=== PATIENT | male | born 1975 | race Caucasian/White ===

== ENCOUNTER 2020-10-16 13:05 | Emergency (ER) | payer OTHER, SELFPAY ==
--- NOTE | ~2020-10-16 | CT_ITS ---
EXAMINATION: CT ABDOMEN AND PELVIS WITHOUT CONTRAST CLINICAL INFORMATION: Flank pain COMPARISON: Renal ultrasound 09/15/2019, CT abdomen and pelvis noncontrast 09/27/2017. TECHNIQUE: Multidetector volumetric imaging was performed from the superior aspect of the liver through the pubic symphysis. No oral or intravenous contrast. Sagittal and coronal reformatted images were obtained on the technologist's workstation. This CT examination was performed using dose optimization techniques as appropriate, variously including the following: *Automated exposure control *Adjustment of mA and/or kV according to patient size (this includes techniques or standardized protocols for targeted exams where dose is matched to indication/reason for exam; i.e. extremities or head) *Use of iterative reconstruction technique DLP: 469 mGy-cm FINDINGS: LUNG BASES: The visualized lung bases are unremarkable. LIVER, GALLBLADDER, AND BILIARY TREE: The liver is normal in size, shape, and attenuation. No focal hepatic lesion or biliary ductal dilatation is present. The gallbladder is unremarkable with no evidence of radiopaque gallstones, gallbladder wall thickening, or obvious pericholecystic inflammatory changes. PANCREAS: Unremarkable. SPLEEN: Unremarkable. ADRENAL GLANDS: Unremarkable. KIDNEYS AND URETERS: The kidneys are normal in size and attenuation and smooth in contour. The left kidney has a punctate nonobstructing interpolar calculus under 3 mm. There are no left ureteral calculus or perinephric stranding. There is mild to moderate right hydronephrosis with mild right hydroureter. A 3 mm calculus is present at the bladder side right ureterovesical junction. There is trace perinephric stranding. Similar findings were present on CT 2018. Fine benign linear calcification is present right renal lower pole parenchyma without visible mass. BLADDER: 3 mm calculus at bladder side right UVJ. GASTROINTESTINAL TRACT: There are no acute inflammatory changes in the bowel or mesentery. No obstruction. The appendix is normal. There is accentuated circumferential submucosal fat throughout the colon. This is nonspecific finding and could be associated with chronic inflammatory bowel disease. Clinically correlate. There is no pneumatosis or free air. There is no ascites or fluid collection. ABDOMINAL WALL: No significant hernia is appreciated. LYMPH NODES: No lymphadenopathy. VASCULAR: Unremarkable. PELVIC VISCERA: Unremarkable. OSSEOUS STRUCTURES: Unremarkable. No sacroiliitis. CT/CT abdomen pelvis wo con IMPRESSION: 1. Mild to moderate right hydronephrosis and mild right hydroureter. 3 mm calculus present lateral side right UVJ. Punctate nonobstructing calculus mid pole left kidney. Similar findings were noted in 2018. 2. No bowel obstruction or acute inflammatory changes in bowel or mesentery. Nonspecific accentuated circumferential submucosal fat throughout colon. Finding may be seen in patients with chronic history inflammatory bowel disease. Clinically correlate.
[2020-10-16 13:09] VITALS: BP 143/117; PULSE 79; RESP 18; TEMP 36.9; O2SAT 96; BMI 27.3
[2020-10-16 14:43] LABS: MANUAL DIFF FLAG NO
[2020-10-16 14:51] LABS: Glucose Urine UA NEG (NEG); Leukocyte Esterase Urine NEG (NEG); Nitrite Urine NEG (NEG); Specific Gravity - Urine >= 1.030 (1.005-1.025); UACC Culture Trigger NO; Urine Blood 2+ (NEG); Urine Ketones NEG (NEG); Urine Protein 1+ MG/DL (NEG-TRACE)
[2020-10-16 14:55] LABS: Basophils Percent Auto 0.4 % (0-2); Eosinophils Percent Auto 0.2 % (0-4); Hemoglobin 13.1 g/dl (14.0-18.0); Imm Gran Abs Auto 0.01 X10*3/uL (0.00-0.03); Imm Gran Pct Auto 0.1 % (0.0-0.4); Mean Corpuscular HGB Conc 33.6 g/dl (31.0-36.0); Mean Corpuscular Hemoglobin 29.6 pg (27.0-33.0); Mean Platelet Volume 10.8 fL (9.4-12.4); Monocytes Absolute Auto 0.5 X10*3/uL (0.1-1.2); Monocytes Percent Auto 5.8 % (2-11); Neutrophils Absolute Auto 6.7 X10*3/uL (2.0-8.3); Neutrophils Percent Auto 81.5 % (45-73); Platelet Count 227 X10*3/uL (160-400); Red Blood Count 4.43 X10*6/uL (4.60-5.80); Red Cell Distribution Width 12.5 % (11.0-16.0); White Blood Count 8.3 X10*3/uL (4.8-10.8)
[2020-10-16 14:56] LABS: Appearance Urine CLEAR; Color Urine YELLOW
[2020-10-16 15:08] LABS: Anion Gap 14 (12-20); Blood Urea Nitrogen 17 mg/dL (9-16); Carbon Dioxide 22 mmol/L (22-29); Chloride 109 mmol/L (96-108); Creatinine Clr Calc Pharmacy 71.4; Estimated Glomerular Filt Rate > 60; Glucose Random 131 mg/dL (60-115); Potassium 4.4 mmol/L (3.3-5.1); Sodium 141 mmol/L (135-145)
[2020-10-16 15:16] LABS: Bacteria Urine TRACE /LPF; Calcium Oxalate Crystals Urine TRACE /LPF; Calcium Phosphate Crystals Ur TRACE /LPF; Hyaline Casts Urine 0-2 /LPF; Mucus Urine 2+ /LPF; WBC Urine 0-2 /HPF (0-4)
--- NOTE | 2020-10-16 16:58 | ED.MALEGU ---
HPI - Male Genitourinary General Chief complaint: Urogenital-Male Stated complaint: ABD PAIN Time Seen by Provider: 10/16/20 16:58 Source: patient Mode of arrival: ambulatory Limitations: no limitations History of Present Illness HPI Narrative: [age] old male with left-sided flank pain left lower abdominal pain. Patient states this pain has since resolved had it for about an hour this morning patient has a history of kidney stones patient denies fevers chills or blood in his urine. Patient denies any falls or other injuries. Patient states he has had kidney stones in the past. Related Data Previous Rx's Medication Instructions Recorded indomethacin 50 mg capsule 50 mg PO BID #60 cap 10/16/20 Allergies Allergy/AdvReac Type Severity Reaction Status Date / Time No Known Allergies Allergy Unverified 11/04/19 16:31 [No Known Allergies*] dairy Allergy Unknown rash Uncoded 10/12/19 00:00 Review of Systems Review of Systems: Review of systems: General: Patient denies any fever chills recent illness or falls Musculoskeletal: Denies back pain or body aches or other injuries HEENT: denies headache, runny nose, ear pain Respiratory: denies shortness of breath, cough Cardiovascular: no chest pain or palpitations : denies dysuria, frequency Abdomen: Left flank pain no nausea vomiting denies abdominal pain Extremities: no swelling, no pain Skin: no diaphoresis Yes all other systems are reviewed and are negative PMFSH Social History Social History Advance Directives: No Advance Directives Information Provided: No Physical Exam Vital Signs: Vital Signs: Last Vital Signs Temp 98.4 F 10/16/20 13:09 Pulse 79 10/16/20 13:09 Resp 18 10/16/20 13:09 BP 143/117 H 10/16/20 13:09 Pulse Ox 96 10/16/20 13:09 Body Mass Index 27.3 General: Well-appearing well-nourished in no signs of distress HEENT: Normocephalic atraumatic Neck: No signs of JVD, no masses no tenderness or lymphadenopathy Cardiovascular: Regular rate and rhythm Respiratory: Clear to auscultation bilaterally Abdomen: Soft nontender no masses no CVA tenderness Extremities: Normal pedal pulses no signs of edema Skin: Dry warm no rashes Back: No tenderness full ROM MDM - Male Genitourinary MDM Narrative Medical decision making narrative: Patient with left flank pain concern for kidney stone patient was sent for CT scan and labs. Pain is well controlled Pain continues to have will control pain CT scan shows a 3 mm kidney stone urine shows red blood cells with no signs of infection his labs otherwise normal send patient home with Urology follow-up. Differential Diagnosis Differential diagnosis: Likely urinary tract infection Lab Data Result diagrams: 10/16/20 14:35 10/16/20 14:35 Labs: Lab Results 10/16/20 10/16/20 10/16/20 Range/Units 14:35 14:35 14:38 WBC 8.3 (4.8-10.8) X10*3/uL RBC 4.43 L (4.60-5.80) X10*6/uL Hgb 13.1 L (14.0-18.0) g/dl Hct 39.0 L (42-52) % MCV 88.0 (80-98) fL MCH 29.6 (27.0-33.0) pg MCHC 33.6 (31.0-36.0) g/dl RDW 12.5 (11.0-16.0) % Plt Count 227 (160-400) X10*3/uL MPV 10.8 (9.4-12.4) fL Immature Gran % (Auto) 0.1 (0.0-0.4) % Neut % (Auto) 81.5 H (45-73) % Lymph % (Auto) 12.0 L (20-40) % [place] % (Auto) 5.8 (2-11) % Eos % (Auto) 0.2 (0-4) % Baso % (Auto) 0.4 (0-2) % Lymph # (Auto) 1.0 L (1.2-4.9) X10*3/uL [place] # (Auto) 0.5 (0.1-1.2) X10*3/uL Eos # (Auto) 0.0 (0.0-0.4) X10*3/uL Baso # (Auto) 0.0 (0.0-0.2) X10*3/uL Abs Immat Gran (auto) 0.01 (0.00-0.03) X10*3/uL Absolute Neuts (auto) 6.7 (2.0-8.3) X10*3/uL Absolute Nucleated RBC 0.000 (0.0-0.012) X10*3/uL Nucleated RBC % (auto) 0.0 (0.0-0.2) /100WBC Sodium 141 (135-145) mmol/L Potassium 4.4 (3.3-5.1) mmol/L Chloride 109 H (96-108) mmol/L Carbon Dioxide 22 (22-29) mmol/L Anion Gap 14 (12-20) BUN 17 H (9-16) mg/dL Creatinine 1.29 (0.5-1.4) mg/dL Estim Creat Clear Calc 71.4 Estimated GFR > 60 Random Glucose 131 H (60-115) mg/dL Calcium 10.0 (8.4-10.2) mg/dL Urine Color YELLOW Urine Appearance CLEAR Urine pH 6.0 (5.0-8.0) Ur Specific [place] >= 1.030 H (1.005-1.025) Urine Protein 1+ H (NEG-TRACE) MG/DL Urine Glucose (UA) NEG (NEG) MG/DL Urine Ketones NEG (NEG) MG/DL Urine Blood 2+ H (NEG) Urine Nitrite NEG (NEG) Ur Leukocyte Esterase NEG (NEG) Urine RBC 15-29 H (0) /HPF Urine WBC 0-2 (0-4) /HPF Ur Squamous Epith Cells NONE /LPF Calcium Phosphate Cryst TRACE /LPF Calcium Oxalate Crystal TRACE /LPF Urine Bacteria TRACE /LPF Hyaline Casts 0-2 /LPF Urine Mucus 2+ /LPF Discharge Plan Discharge Clinical Impression: Calculus of kidney Patient Disposition: Home, Self-Care Instructions: Kidney Stones (ED) Additional Instructions: Please call follow through please take the indomethacin as needed for pain and follow-up with urology. Prescriptions: New indomethacin 50 mg capsule 50 mg PO BID Qty: 60 RF: 0 Referrals: Tk Knight MD [Physician] - 2 days (Please call follow-up for kidney stones if you have any other concerns please do not hesitate to come back to emergency department.) Stand Alone Forms: Work/School Release
== END 2020-10-16 17:09 | disposition home or self-care (01) ==
LOC: HO.ED 17:03
PROVIDERS: Emergency Provider Student in an Organized Health Care Education/Training Program; PCP Internal Medicine
DX: N20.0 Calculus of kidney (principal); R10.32 Left lower quadrant pain; Z79.899 Other long term (current) drug therapy
CPT/HCPCS: 36415; 74176; 80048; 81001; 85025; 99283; 99284

== ENCOUNTER 2020-10-18 15:55 | Outpatient (REF) | payer OTHER, SELFPAY ==
--- NOTE | ~2020-10-18 | XR_ITS ---
EXAMINATION: XR ABDOMEN KUB CLINICAL INDICATION: Renal calculus. COMPARISON: CT of 10/16/2020 and 09/27/2017 TECHNIQUE: AP view of the abdomen. FINDINGS: No definite calculi seen overlying the contours of the right or left kidneys. There are a few phleboliths seen about the pelvis with one calcific density measuring 3 mm in diameter overlying the expected location of the ureterovesical junction. It is difficult to tell on prior CT scans how many phleboliths there are to compare to plain film study. There is a normal bowel gas pattern present with stool and gas seen throughout nondilated colon. Psoas margins are intact bilaterally. No bony abnormalities are appreciated. XR/XR KUB IMPRESSION: Known renal calculi overlying the kidneys are not identified on this plain film study. Phleboliths present about the pelvis with one 3 mm density which may correspond to the CT finding of the ureterovesical junction calculus.
== END 2020-10-18 15:56 | disposition home or self-care (01) ==
LOC: HO.XRAY 15:55
PROVIDERS: Visit Provider Urology
DX: N20.0 Calculus of kidney (principal)
CPT/HCPCS: 74018

== ENCOUNTER → 2020-10-26 15:32 | Outpatient (BNVA) | payer OTHER, SELFPAY | PROVIDERS: PCP Internal Medicine; Visit Provider Urology | DX: N20.0 Calculus of kidney (principal) | CPT/HCPCS: 99212 ==

== ENCOUNTER 2020-11-23 12:39 | Outpatient (REF) | payer OTHER, SELFPAY ==
--- NOTE | ~2020-11-23 | US_ITS ---
EXAMINATION: US RETROPERITONEAL LIMITED (RENAL ONLY) CLINICAL INFORMATION: Kidney stone. COMPARISON: Previous renal ultrasound July 2019, CT September 2020 and KUB October 2020 TECHNIQUE: Grayscale and color imaging of the kidneys FINDINGS: RIGHT KIDNEY: 11.2 x 5 x 5.1 cm (SAG x AP x TRV). The kidney is normal in size, contour, and echogenicity. Renal cortical thickness is normal. There is a a stone or cluster of stones in the lower pole measuring 6 x 5 x 5 mm. There is a 9 x 4 x 7 mm cyst in the lower pole. No hydronephrosis. LEFT KIDNEY: 11.3 x 5.2 x 4.4 cm (SAG x AP x TRV). The kidney is normal in size, contour, and echogenicity. Renal cortical thickness is normal. There is a 3 mm echogenic density with twinkle artifact in the midpole questionable suggestive of a stone. No hydronephrosis. US/US renal BI IMPRESSION: Stone or cluster of stones in the lower pole of the right kidney. Small left renal stone. Small right renal cyst.
== END 2020-11-23 12:40 | disposition home or self-care (01) ==
LOC: HO.US 12:39
PROVIDERS: PCP Internal Medicine; Visit Provider Urology
DX: N20.0 Calculus of kidney (principal)
CPT/HCPCS: 76775

== ENCOUNTER → 2020-12-08 11:19 | Outpatient (BNVA) | payer OTHER, SELFPAY | PROVIDERS: Visit Provider Urology | DX: N20.0 Calculus of kidney (principal) | CPT/HCPCS: 99212 ==

== ENCOUNTER 2021-01-03 06:49 | Day surgery (SDC) | payer OTHER, SELFPAY ==
--- NOTE | 2021-01-02 12:08 | HO.ANESPROP2 ---
Documented by User: Colleen Doan NP 01/02/21 12:09 HPI - Anesthesia Eval Consult details Narrative: 45yo M for Right Lithotripsy ESW No previous ESWL on record PMFSH Active Problems Active Problems: All Active Problems (Updated 12/27/20 @ 15:01 by Kyra Santos, ANMOL) Nephrolithiasis (Acute) Past Medical History Medical History (Updated 12/27/20 @ 15:01 by Kyra Santos RN) HTN (hypertension) Surgical History Surgical History (Updated 01/03/21 @ 08:22 by Sandy Yang RN) Hx of cystoscopy Hx of lithotripsy Social History Social History Patient Tobacco Use Status: Never used Tobacco Use of substances other than those prescribed or required for medical reasons: No Have you been hit, kicked, punched, or otherwise hurt by someone within the past year? If so, by whom?: No Are you DNR?: No Advance Directives: No Advance Directives Information Provided: Yes Recently lost weight without trying: No Nutrition Risks: No Nutritional Risk Poor oral hygiene: No Meds Allergies Allergy/AdvReac Type Severity Reaction Status Date / Time No Known Allergies Allergy Verified 12/27/20 15:00 [No Known Allergies*] dairy Allergy Unknown rash Uncoded 12/27/20 15:00 Home Medications Medication Instructions Recorded Confirmed Last Taken Type lisinopril 10 mg tablet 10 mg PO QAM 10/26/20 12/27/20 Unknown History Exam Exam Date and Time: January 02, 2021 1208 Pertinent Lab Results Pertinent Lab Results: Laboratory Tests 10/16/20 10/16/20 14:35 14:35 WBC 8.3 Hgb 13.1 L Hct 39.0 L Plt Count 227 Sodium 141 Potassium 4.4 Chloride 109 H Carbon Dioxide 22 BUN 17 H Creatinine 1.29 Assessment and Plan Assessment Anesthesia Assessment: Chart Reviewed Documented by User: Martita Agosto MD 01/03/21 09:04 HPI - Anesthesia Eval Consult details Narrative: 45yo M for Right Lithotripsy ESW No previous ESWL on record PMFSH Past Medical History Medical History (Updated 12/27/20 @ 15:01 by Kyra Santos, RN) HTN (hypertension) Surgical History Surgical History (Updated 01/03/21 @ 08:22 by Sandy Yang, RN) Hx of cystoscopy Hx of lithotripsy Social History Social History Patient Tobacco Use Status: Never used Tobacco Use of substances other than those prescribed or required for medical reasons: No Have you been hit, kicked, punched, or otherwise hurt by someone within the past year? If so, by whom?: No Are you DNR?: No Advance Directives: No Advance Directives Information Provided: Yes Recently lost weight without trying: No Nutrition Risks: No Nutritional Risk Poor oral hygiene: No Meds Allergies Allergy/AdvReac Type Severity Reaction Status Date / Time No Known Allergies Allergy Verified 12/27/20 15:00 [No Known Allergies*] dairy Allergy Unknown rash Uncoded 12/27/20 15:00 Home Medications Medication Instructions Recorded Confirmed Last Taken Type lisinopril 10 mg tablet 10 mg PO QAM 10/26/20 12/27/20 Unknown History Exam Airway Mallampati Class: III TM Dist: >3cm Neck ROM: Full Loose/Missing/Broken Teeth: Yes Heart: rrr Lungs: bl breath sounds Assessment and Plan Assessment Anesthesia Assessment: Anesthesia Plan Discussed and Chart Reviewed Final Anesthetic Review NPO: Yes ASA Class: II Final Preanesthetic Review: Meds/Allgs Chart Reviewed and Anes Risks/Benef Reviewed Patient Risk: Intermediate Procedure Risk: Intermediate Anesthetic Plan Anesthetic Plan: GA Disposition: Standard PACU
--- NOTE | ~2021-01-03 | XR_ITS ---
EXAMINATION: XR ABDOMEN KUB CLINICAL INDICATION: Nephrolithiasis. COMPARISON: 10/18/20. Ultrasound of 11/23/20. CT scan of 10/16/20. TECHNIQUE: AP view of the abdomen. FINDINGS: Renal calculi demonstrated on prior ultrasound and CT scans are not visible. The bowel gas pattern is normal. No bony abnormality. XR/XR KUB IMPRESSION: Renal calculi are not visible on the abdominal plain film.
[2021-01-03 08:04] VITALS: BP 125/74; PULSE 98; RESP 17; TEMP 36.6; O2SAT 97; BMI 22.0
[2021-01-03] MEDS: Acetaminophen 325 MG TABLET 650 MG PO (08:18)
[2021-01-03] MEDS: Lactated Ringers 1,000 ML 100 ML IVCONT (08:18)
--- NOTE | 2021-01-03 09:50 | P.HPSUR_ITS ---
Pre-Procedural Eval Section A Date of Service: 01/03/21 Section B Chief Complaint: kidney stone Details of Present Illness: right renal stone - 8 mm mid pole Relevant Family History (Specify if Yes): No Relevant Social History: None Present Medications: see Short Stay Collaborative assessment Medical History: No relevant PMH History of Previous Operations: No relevant previous surgery Allergies: Allergies Allergy/AdvReac Type Severity Reaction Status Date / Time No Known Allergies Allergy Verified 12/27/20 15:00 [No Known Allergies*] dairy Allergy Unknown rash Uncoded 12/27/20 15:00 Review of Systems Sugical H&P ROS: Negative: Constitution, Cardiovascular, Respiratory, Neurological, Psychiatric, Hem-Onc, Allergic/Immunologic, Gastrointestinal, Genitourinary, Musculoskeletal, Integumentary, Endocrine and Eyes/Ears/Nos e/Throat Exam Surgical H&P Exam: Normal: HEENT, Normal: Heart, Normal: Lungs, Normal: Extremities, Normal: Abdomen, Normal: Skin and Normal: Neurological Plan Diagnosis/Plan: Unchanged (rihght ESWL) I have reviewed the history and physical and performed a pertinent physical examination on my patient. No changes have occurred unless specified.
--- NOTE | 2021-01-03 10:17 | W.PM.OPN ---
Operative Note Operative Note Date of Service: 01/03/21 Narrative: PreOperative Diagnosis: Right Renal stones Post Operative Diagnosis: Right Renal stones Procedure: Right ESWL Surgeon: Dr Tk Knight Anesthesia: mac/sedation Indications for procedure: The patient understands ESWL may be a staged procedure and subsequent intervention may be required based on imaging after ESWL. They also understand there is a risk of bleeding to the kidney, infection, damage to adjacent organs, and stone migration following the procedure. - right mid pole 6 mm Procedure: After informed consent was verified the patient was brought to the operating room and placed in a supine position. Anesthesia was performed per protocol. Safety pause time-out was performed. Imaging was displayed in the room and laterality confirmed. ESWL was performed. The 1st 500 shocks were performed at 60 hertz. These were performed with increasing power. Once maximum power was reached the rate was increased to 180 hertz. A total of 2500 shocks were given. Targetted imaging with ultrasound/fluoroscopy showed stone smudging suggestive of disintegration. The patient tolerated the procedure well and was transferred to the recovery area upon completion. Post procedure imaging will be organized. There was no evidence for flank discoloration.
[2021-01-03 10:45] VITALS: BP 123/78; PULSE 74; RESP 12; TEMP 36.1; O2SAT 98
[2021-01-03 11:00] VITALS: BP 115/78; PULSE 63; RESP 17; TEMP 36.1; O2SAT 97
== END 2021-01-03 11:40 | disposition home or self-care (01) ==
PROVIDERS: PCP Internal Medicine; Visit Provider Urology
PROC: (CPT 50590; principal; 2021-01-03 09:20)
DX: N20.0 Calculus of kidney (principal); Z87.442 Personal history of urinary calculi; I10 Essential (primary) hypertension
CPT/HCPCS: 50590; 74018; J2250

== ENCOUNTER 2021-02-05 15:37 | Outpatient (REF) | payer OTHER, SELFPAY ==
--- NOTE | ~2021-02-05 | US_ITS ---
EXAMINATION: US RETROPERITONEAL LIMITED (RENAL ONLY) CLINICAL INFORMATION: Calculus of kidney. COMPARISON: X-ray abdomen KUB 01/03/2021 and 10/18/2020. Renal ultrasound 11/23/2020 and 09/15/2019. CT abdomen and pelvis 10/16/2020. TECHNIQUE: Real-time imaging of the kidneys. FINDINGS: RIGHT KIDNEY: 11.6 x 4.0 x 5.0 cm (SAG x AP x TRV). The kidney is normal in size, contour, and echogenicity. Renal cortical thickness is normal. There is a 1.6 x 1 x 1.2 cm cyst in the lower pole. No renal calculi or hydronephrosis. The previously identified stone or cluster of stones in the lower pole of the right kidney is not seen. LEFT KIDNEY: 11.4 x 4.7 x 4.7 cm (SAG x AP x TRV). The kidney is normal in size, contour, and echogenicity. Renal cortical thickness is normal. No calculi or focal parenchymal lesions. No hydronephrosis. US/US renal BI IMPRESSION: Small right renal cyst. No stone seen.
== END 2021-02-05 15:38 | disposition home or self-care (01) ==
LOC: HO.US 15:37
PROVIDERS: PCP Internal Medicine; Visit Provider Urology
DX: N20.0 Calculus of kidney (principal)
CPT/HCPCS: 76775

== ENCOUNTER → 2021-02-08 08:35 | Outpatient (BNVA) | payer OTHER, SELFPAY | PROVIDERS: PCP Internal Medicine; Visit Provider Urology | DX: N20.0 Calculus of kidney (principal) | CPT/HCPCS: 99212 ==

== ENCOUNTER 2021-07-11 09:53 | Outpatient (REF) | payer OTHER, SELFPAY ==
--- NOTE | ~2021-07-11 | US_ITS ---
EXAMINATION: US RETROPERITONEAL LIMITED (RENAL ONLY) CLINICAL INFORMATION: Calculus of kidney. COMPARISON: Renal ultrasound 02/05/2021 and 11/23/2020. X-ray abdomen KUB 01/03/2021 and 10/18/2020. CT abdomen and pelvis 10/16/2020. TECHNIQUE: Real-time imaging of the kidneys. FINDINGS: RIGHT KIDNEY: 10.3 x 4.4 x 4.7 cm (SAG x AP x TRV). The kidney is normal in size, contour, and echogenicity. Renal cortical thickness is normal. No renal calculi or hydronephrosis. Once again hypoechoic structure right lower pole. Measures 1.1 x 0.7 cm. This cyst. LEFT KIDNEY: 11.3 x 5.1 x 4.7 cm (SAG x AP x TRV). The kidney is normal in size, contour, and echogenicity. Renal cortical thickness is normal. No calculi or focal parenchymal lesions. No hydronephrosis. US/US renal BI IMPRESSION: No ultrasound finding to suggest calculus in the kidneys. There is no hydronephrosis. Findings demonstrating a small cyst lower pole right kidney
== END 2021-07-11 09:54 | disposition home or self-care (01) ==
LOC: HO.US 09:53
PROVIDERS: PCP Internal Medicine; Visit Provider Urology
DX: N20.0 Calculus of kidney (principal)
CPT/HCPCS: 76775

== ENCOUNTER → 2021-08-08 08:44 | Outpatient (BNVA) | payer OTHER, SELFPAY | PROVIDERS: PCP Internal Medicine; Visit Provider Urology | DX: N20.0 Calculus of kidney (principal) | CPT/HCPCS: 99212 ==

== ENCOUNTER 2022-05-30 09:56 | Outpatient (REF) | payer OTHER, SELFPAY ==
--- NOTE | ~2022-05-30 | US_ITS ---
EXAMINATION: US RETROPERITONEAL LIMITED (RENAL ONLY) CLINICAL INFORMATION: Calculus of kidney. COMPARISON: Renal ultrasound 07/11/2021 and 02/05/2021. TECHNIQUE: Real-time imaging of the kidneys. FINDINGS: RIGHT KIDNEY: 11.1 x 4.2 x 5.6 cm (SAG x AP x TRV). The kidney is normal in size, contour, and echogenicity. Renal cortical thickness is normal. No renal calculi or hydronephrosis. Subcentimeter simple cyst in the lower pole of the right kidney. No imaging follow-up is recommended. LEFT KIDNEY: 11.7 x 5.4 x 4.7 cm (SAG x AP x TRV). The kidney is normal in size, contour, and echogenicity. Renal cortical thickness is normal. No calculi or focal parenchymal lesions. No hydronephrosis. US/US renal BI IMPRESSION: No nephrolithiasis or hydronephrosis.
== END 2022-05-30 09:57 | disposition home or self-care (01) ==
LOC: HO.US 09:56
PROVIDERS: PCP Internal Medicine; Visit Provider Urology
DX: N20.0 Calculus of kidney (principal)
CPT/HCPCS: 76775

== ENCOUNTER → 2022-08-13 09:34 | Outpatient (BNVA) | payer OTHER, SELFPAY | PROVIDERS: PCP Internal Medicine; Visit Provider Urology | DX: N20.0 Calculus of kidney (principal) | CPT/HCPCS: 99212 ==

== ENCOUNTER 2023-08-04 10:22 | Outpatient (REF) | payer OTHER, SELFPAY ==
--- NOTE | ~2023-08-04 | US_ITS ---
EXAMINATION: US RETROPERITONEAL LIMITED (RENAL ONLY) CLINICAL INFORMATION: Calculus of kidney. COMPARISON: Renal ultrasound 05/30/2022 and 07/11/2021. X-ray abdomen KUB 01/03/2021. CT abdomen and pelvis 10/16/2020. TECHNIQUE: Real-time imaging of the kidneys. Limited visualization due to bowel gas. FINDINGS: RIGHT KIDNEY: 11.6 x 5.4 x 6.0 cm (SAG x AP x TRV). No hydronephrosis. No renal calculi. Renal cortical thickness is normal. Previous identified right renal cyst is not appreciated on the current exam. Limited visualization. LEFT KIDNEY: 11.8 x 5.4 x 3.7 cm (SAG x AP x TRV). No hydronephrosis. Left renal calculi measure 6 mm mid pole, 6 mm upper pole, and 4 mm mid pole Renal cortical thickness is normal. Limited visualization. US/US renal BI IMPRESSION: Left renal calculi. No hydronephrosis.
== END 2023-08-04 10:23 | disposition home or self-care (01) ==
LOC: HO.US 10:22
PROVIDERS: PCP Internal Medicine; Visit Provider Urology
DX: N20.0 Calculus of kidney (principal)
CPT/HCPCS: 76775

== ENCOUNTER 2023-08-13 09:31 | Outpatient (AMB) | payer OTHER, SELFPAY ==
--- NOTE | 2023-08-13 09:33 | MHC.OFFVIS ---
Intake Visit Reasons: 1Y Ultrasound (set) Intake Note: Patient presents to the office today for a 1 year ultrasound follow up Urology Med: None Antibiotic Allergy: None Blood Thinner: None Allergies No Known Allergies [No Known Allergies*] Allergy (Verified 08/13/23 09:33) dairy Allergy (Unknown, Uncoded 08/13/23 09:33) rash Medication List - Last Reconciled 08/13/23 by Tk Knight MD lisinopril 10 mg PO QAM pyridoxine (vitamin B6) 50 mg PO DAILY 90 days HPI Comments Details: Rge Coats s a very pleasant male. They are a patient of Dr Merida. They are seen in the office today for the following urologic conditions. - nephrolithiasis Ultrasound small stones left side Last stone 2020 Keep up fluids - aim for 48 oz a day Add vitamin B6 Nephrolithiasis/Urolithiasis:? They are here for?further evaluation of nephrolithiasis ?- discussed imaging ?Continue with surveillance imaging.? Urolithiasis was diagnosed?2011 - Dr Key ?10/04 [facility] [place] with right flank pain.? The patient previously had kidney stones whose composition w?unknown.? Laboratory investigations include?no recent labs.? 24 Hour urine evaluation?none on file.? Prior treatment(s) include?right procedure 2011 ?10/05 B12 - 01/07 R ESWL ? Prior imaging includes?10/04 , a CT (computed tomography) scan of the abdomen/pelvis (stone protocol) - distal right small stone ?04/07 , a renal ultrasound, right 2 small 3mm stones, small left cyst with calcifications ?10/05 , a renal ultrasound right cyst, no stones, left 3mm punctate stone ?10/06, a renal ultrasound, left 3 mm, right 5 mm cyst 10/07 renal ultrasound bilateral cysts, right small collection of stones, 08/08 renal ultrasound small bilateral cysts - 06/09 renal ultrasound no stones - 06/10 renal ultrasound small stones left side ? Current therapeutic plan will be?to continue with imaging surveillance? PFSH Medical History HTN (hypertension) Surgical History Hx of cystoscopy Hx of lithotripsy Social History Patient Tobacco Use Status: Never used Tobacco Review of Systems Const Denies chills and Denies fever(s) Card Reports no additional complaints and Denies syncope Resp Denies cough GI Denies abdominal pain and Denies heartburn Reports as per HPI and Denies change in libido Neuro Denies syncope Psych Denies change in libido Endo Denies change in libido Physical Exam Const General: cooperative, healthy appearing, comfortable and no acute distress Orientation/consciousness: patient oriented x3 HEENT Face and sinus: Yes normal facial exam Mouth: moist mucous membranes Neck Neck: Yes normal visual inspection, Yes full ROM and Yes trachea midline Chest Chest palpation & inspection: normal inspection of the chest Resp Effort & Inspection: normal respiratory effort, able to speak in complete sentences and no respiratory distress GI Inspection: Yes normal to inspection Back/Spine/Pelvis Cervical Spine: normal cervical lordosis Thoracic/Lumbar Spine: thoracic and lumbar spine normal to inspection Skin General skin exam: no rashes or lesions noted Neuro General: patient oriented x3, gait normal, tone normal and moves all extremities Extrem General: Yes normal to inspection and Yes capillary refill normal Assessment & Plan Assessment & Plan (1) Nephrolithiasis: Code(s): N20.0 - Calculus of kidney Category: Medical Plan Twelve month follow-up renal imaging Orders: Orders US renal BI 12 Months N20.0 - Calculus of kidney Medications: New pyridoxine (vitamin B6) 50 mg PO DAILY 90 days 90 tabs 3RF N13.2 - Hydronephrosis with renal and ureteral calculous obstruction, N20.0 - Calculus of kidney Patient Instructions: Imaging studies, laboratory and physical exam results were discussed and reviewed in detail. No major barriers to patient understanding were identified. An opportunity to ask questions regarding the treatment plan was provided. All questions were answered. The patient expressed understanding and agreement with the above treatment plan. The patient is aware they should contact our office by phone for worsening of their current condition or the appearance of new urologic symptoms. Compliance is encouraged with any medications and followup testing that is ordered. It is a privilege to participate in the urologic care of your patient. If you have any questions or concerns regarding treatment for the above conditions, or other urologic issues, please do not hesitate to contact me. The office telephone contact is [phone]. This note is constructed using voice recognition software. While every effort has been made to ensure accuracy abnormal psychology teacher errors may have been included. Yours sincerely, Dr Tk Knight MD, GURDEEP [facility] - Urology Providers of Expert, Compassionate Care for the Genitourinary System Coding Level of Care Code Est Pt Level 4 (06598) Diagnoses Nephrolithiasis N20.0
== END 2023-08-13 10:20 | disposition home or self-care (01) ==
PROVIDERS: PCP Internal Medicine; Visit Provider Urology
DX: N20.0 Calculus of kidney (principal)
CPT/HCPCS: 99213

== ENCOUNTER → 2023-08-13 09:31 | Outpatient (BNVA) | payer OTHER, SELFPAY | PROVIDERS: PCP Internal Medicine; Visit Provider Urology | DX: N20.0 Calculus of kidney (principal) | CPT/HCPCS: 99212 ==

== ENCOUNTER 2024-08-02 07:49 | Outpatient (REF) | payer OTHER, SELFPAY ==
--- NOTE | ~2024-08-02 | US_ITS ---
EXAMINATION: Ultrasound renal bilaterally. CLINICAL INFORMATION: Calculus of the kidneys. COMPARISON: August 04 2023. TECHNIQUE: Real-time ultrasound of the kidneys using grayscale technique. FINDINGS: Right kidney: 10 x 4 x 5 cm. Normal echotexture. Normal renal cortical thickness. No hydronephrosis. There is a 4 mm small anechoic lesion with punctate hyperechoic area centered in the lower pole. There is a 3 mm hyperechoic abnormality in the lower pole and likely the upper pole. Left kidney: 11 x 5 x 4 cm. Normal echotexture. Normal renal cortical thickness. No hydronephrosis. There are a few, less than 0.5 cm hyperechoic abnormality is seen in the pelvicalyceal system. US/US renal BI IMPRESSION: Bilateral nonobstructing nephrolithiasis. Bosniak type II cyst, right kidney. Electronically signed by: Riley Spencer MD 08/02/2024 12:48 PM EDT
--- OUTSIDE RECORDS SUMMARY | 2024-08-02 07:51 | XMS_ITS | Clinical Summary ---
Author Organization [facility] Address [address] [facility] [address] [place] [address] Phone Care Team Providers Care Licensed Retail Supervisor Name Role Phone Pérez Merida MD Primary Care Provider [phone] Allergies Active Allergy Reactions Criticality Noted Date Comments Milk Protein 08/31/2019 Galactosemia Medications lisinopril (PRINIVIL,ZESTRI L) 10 MG tablet Take 10 mg by mouth daily 09/02/2019 Active acetaminophen (TYLENOL) 325 MG tablet Take 325 mg by mouth 09/02/2019 Active Active Problems Problem Noted Date Diagnosed Date Nocturia 06/23/2020 Renal stone 06/23/2020 Simple renal cyst 06/23/2020 Immunizations Immunization Administration Dates Next Due Tdap 08/22/2019 Family History Medical History Relation Comments Diabetes Father Diabetes Mother Diabetes Sibling sister Relation Status Comments Father Unknown Mother Unknown Sibling Social History Tobacco Use Types Packs/Day Years Used Date Smoking Tobacco: Never Smokeless Tobacco: Never Alcohol Use Standard Drinks/Week Comments No 0 (1 standard drink = 0.6 oz pur e alcohol) Sex and Gender Information Value Date Recorded Sex Assigned at Not on file Legal Sex Male 4:48 PM EST Gender Identity Not on file Sexual Orientation Not on file Last Filed Vital Signs Vital Sign Reading Time Taken Comments Blood Pressure 110/60 07/01/2022 12:51 PM EDT Pulse 92 07/01/2022 12:51 PM EDT Temperature - - Respiratory Rate - - Oxygen Saturation 95% 07/01/2022 12:51 PM EDT Inhaled Oxygen Concentration - - Weight 72.8 kg (160 lb 9.6 oz) 07/01/2022 12:51 PM EDT Height 170.2 cm (5' 7 ) 07/01/2022 12:51 PM EDT Body Mass Index 25.15 07/01/2022 12:51 PM EDT Plan of Treatment Health Maintenance Due Date Last Done Comments Hepatitis B Vaccine (1 of 3 - 19+ 3-dose series) 11/18 Pneumococcal Vaccine: Peds ( 0 to 5 Years) and At-Risk Patients (6 to 49 Years) (1 of 2 - PCV) 11/19/1995 Influenza Vaccine (Season Ended) 2024 Insurance Medicaid Care Teams Licensed Retail Supervisor Relationship Specialty Start Date End Date Pérez Merida MD [address] [place] [phone] PCP - General 02/28/20
== END 2024-08-02 07:50 | disposition home or self-care (01) ==
LOC: HO.US 07:49
PROVIDERS: PCP Internal Medicine; Visit Provider Urology
DX: N20.0 Calculus of kidney (principal)
CPT/HCPCS: 76775

== ENCOUNTER → 2024-08-02 07:51 | Outpatient (BNV) | payer OTHER, SELFPAY | PROVIDERS: PCP Internal Medicine; Visit Provider Radiology Diagnostic Radiology | DX: N20.0 Calculus of kidney (principal); N28.1 Cyst of kidney, acquired | CPT/HCPCS: 76775 ==

== ENCOUNTER 2024-08-10 10:27 | Outpatient (AMB) | payer OTHER, SELFPAY ==
--- NOTE | 2024-08-10 11:22 | A.OFFVIS_ITS ---
Intake Visit Reasons: 3m/U/S Intake Note: Patient presents to the office today for a 3 mo ultrasound follow up Urology Med: None Antibiotic Allergy: None Blood Thinner: None Chief Quality Officer Required: No Accompanied by: Self / Same As Patient Allergies No Known Allergies (No Known Allergies*) Allergy (Verified 08/13/23 09:33) dairy Allergy (Unknown, Uncoded 08/13/23 09:33) rash HPI Comments Details: Reg Coats s a very pleasant male. They are a patient of Dr Merida. They are seen in the office today for the following urologic conditions. - nephrolithiasis Yearly follow-up Has been on B6 Ultrasound small bilateral punctate stone Nephrolithiasis/Urolithiasis:? They are here for?further evaluation of nephrolithiasis ?- discussed imaging ?Continue with surveillance imaging.? Urolithiasis was diagnosed?2011 - Dr Key ?10/04 [facility] [place] [place] with right flank pain.? The patient previously had kidney stones whose composition w?unknown.? Laboratory investigations include?no recent labs.? 24 Hour urine evaluation?none on file.? Prior treatment(s) include?right procedure 2011 ?10/05 B12 - 01/07 R ESWL ? Prior imaging includes?10/04 , a CT (computed tomography) scan of the abdomen/pelvis (stone protocol) - distal right small stone ?04/07 , a renal ultrasound, right 2 small 3mm stones, small left cyst with calcifications ?10/05 , a renal ultrasound right cyst, no stones, left 3mm punctate stone ?10/06, a renal ultrasound, left 3 mm, right 5 mm cyst 10/07 renal ultrasound bilateral cysts, right small collection of stones, 08/08 renal ultrasound small bilateral cysts - 06/09 renal ultrasound no stones - 06/10 renal ultrasound small stones left side - 08/11 renal ultrasound small bilateral punctate stones ? Current therapeutic plan will be?to continue with imaging surveillance? [facility] Medical History HTN (hypertension) Surgical History Hx of cystoscopy Hx of lithotripsy Social History Patient Tobacco Use Status: Never used Tobacco Review of Systems Const Denies chills and Denies fever(s) Card Reports no additional complaints and Denies syncope Resp Denies cough GI Denies abdominal pain and Denies heartburn Reports as per HPI and Denies change in libido Neuro Denies syncope Psych Denies change in libido Endo Denies change in libido Physical Exam Const General: cooperative, healthy appearing, comfortable and no acute distress Orientation/consciousness: patient oriented x3 HEENT Face and sinus: Yes normal facial exam Mouth: moist mucous membranes Neck Neck: Yes normal visual inspection, Yes full ROM and Yes trachea midline Chest Chest palpation & inspection: normal inspection of the chest Resp Effort & Inspection: normal respiratory effort, able to speak in complete sentences and no respiratory distress GI Inspection: Yes normal to inspection Back/Spine/Pelvis Cervical Spine: normal cervical lordosis Thoracic/Lumbar Spine: thoracic and lumbar spine normal to inspection Skin General skin exam: no rashes or lesions noted Neuro General: patient oriented x3, gait normal, tone normal and moves all extremities Extrem General: Yes normal to inspection and Yes capillary refill normal Assessment & Plan Assessment & Plan (1) Nephrolithiasis: Code(s): N20.0 - Calculus of kidney Category: Medical Plan Twelve month follow-up renal ultrasound Refill B6 Orders: Orders AMB Urinalysis Automated Today Z13.9 - Encounter for screening, unspecified US renal BI 12 Months N20.0 - Calculus of kidney Medications: Refilled pyridoxine (vitamin B6) 50 mg PO DAILY 90 tabs 3RF 90 days N13.2 - Hydronephrosis with renal and ureteral calculous obstruction, N20.0 - Calculus of kidney Patient Instructions: This note is constructed using voice recognition software. While every effort has been made to ensure accuracy direct mail marketer errors may have been included. Imaging studies, laboratory and physical exam results were discussed and reviewed in detail. No major barriers to patient understanding were identified. An opportunity to ask questions regarding the treatment plan was provided. All questions were answered. The patient expressed understanding and agreement with the above treatment plan. The patient is aware they should contact our office by phone for worsening of t heir current condition or the appearance of new urologic symptoms. Compliance is encouraged with any medications and followup testing that is ordered. It is a privilege to participate in the urologic care of your patient. If you have any questions or concerns regarding treatment for the above conditions, or other urologic issues, please do not hesitate to contact me. The office telephone contact is [phone]. Sincerely, Dr Tk Knight MD, GURDEEP [facility] - Urology Compassionate Specialist Care for the Genitourinary System Coding Level of Care Code Est Pt Level 4 (41888) Diagnoses Nephrolithiasis N20.0
--- OUTSIDE RECORDS SUMMARY | 2024-08-10 11:39 | XMS_ITS | Clinical Summary ---
Author Organization [facility] Address [address] [facility] [address] [place] [address] Phone Care Team Providers Care Sample Selector Name Role Phone Pérez Merida MD Primary Care Provider [phone] Allergies Active Allergy Reactions Criticality Noted Date [...] (Season Ended) 2024 Insurance Medicaid Care Teams Sample Selector Relationship Specialty Start Date End Date Pérez Merida MD [address] [place] [phone] PCP - General 02/28/20
== END 2024-08-10 11:45 | disposition home or self-care (01) ==
LOC: HO.HUSH 10:27
PROVIDERS: PCP Internal Medicine; Visit Provider Urology
DX: Z13.9 Encounter for screening, unspecified (principal); N20.0 Calculus of kidney
CPT/HCPCS: 99214

== ENCOUNTER → 2024-08-10 10:27 | Outpatient (BNVA) | payer OTHER, SELFPAY | PROVIDERS: PCP Internal Medicine; Visit Provider Urology | DX: N20.0 Calculus of kidney (principal) | CPT/HCPCS: 81003; 99212 ==